=== PATIENT | female | born 1985 | race Caucasian/White ===

== ENCOUNTER 2017-05-05 11:16 | Emergency (ER) | payer SELFPAY ==
[~2017-05-05] VITALS: Ht 157.5 cm; Wt 45.0 kg
[~2017-05-05 11:16] MED LIST: MECL25 PO
[2017-05-05 11:31] VITALS: BP 133/82; PULSE 69; RESP 16; TEMP 98.8; O2SAT 98
--- NOTE | 2017-05-05 12:24 | PD ---
HPI Chief Complaint: Laceration/Skin Injury Time Seen by Provider: 12:02 Travel History International Travel<30 days: No Contact w/Intl Traveler<30days: No Traveled to known affect area: No History of Present Illness HPI 31-year-old female presents emergency department for evaluation of laceration to her scalp caused by surfboard fin. Patient reports she was in the ocean [place] when she fell from her surfboard and the fin of the board caused a laceration to the top of her head. She denies loss of consciousness. She denies headache, neck pain. She has small laceration to the top of scalp. Symptom severity is mild. No aggravating or alleviating factors. Tetanus status unknown PFSH Past Medical History Depression: Yes Diminished Hearing: No Gastrointestinal Disorders: No Genitourinary: Yes Hepatitis: Yes (Hep B) Hypertension: Yes Implanted Vascular Access Dvce: No Kidney Stones: Yes Musculoskeletal: Yes (NECK AND BACK CHRONIC PAIN) Neurologic: Yes Psychiatric: Yes (ADHD) Immunizations Current: Yes Migraines: Yes Tetanus Vaccination: > 5 Years Influenza Vaccination: No ?: Not LMP: 04/15/17 : 2 Past Surgical History Surgical History: No Previous Surgery Other Surgery: No Social History Alcohol Use: Yes (socially) Tobacco Use: No (quit 3 yrs ago) 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) Allergies-Medications (Allergen,Severity, Reaction): Coded Allergies: acetaminophen (Unverified Allergy, Severe, HIVES/SWELLING, 04/26/17) dichloralphenazone (Unverified Allergy, Severe, HIVES/SWELLING, 04/26/17) isometheptene (Unverified Allergy, Severe, HIVES/SWELLING, 04/26/17) Opioids - Morphine Analogues (Unverified Allergy, Intermediate, 04/26/17) Opioids-Meperidine and Related (Unverified Allergy, Intermediate, 04/26/17) Opioids-Methadone and Related (Unverified Allergy, Intermediate, 04/26/17) Reported Meds & Prescriptions Reported Meds & Active Scripts Active Antivert (Meclizine HCl) 25 Mg Tab 25 Mg PO TID PRN Review of Systems Except as stated in HPI: all other systems reviewed are Neg Physical Exam Narrative GENERAL: Well-nourished, well-developed patient. SKIN: Focused skin assessment warm/dry. 1.5 cm laceration to the top of the scalp. Bleeding is well-controlled. No palpable skull fracture. HEAD: Normocephalic. EYES: No scleral icterus. No injection or drainage. NECK: Supple, trachea midline. No JVD or lymphadenopathy. No cervical midline tenderness CARDIOVASCULAR: Regular rate and rhythm without murmurs, gallops, or rubs. RESPIRATORY: Breath sounds equal bilaterally. No accessory muscle use. GASTROINTESTINAL: Abdomen soft, non-tender, nondistended. MUSCULOSKELETAL: No cyanosis, or edema. BACK: Nontender without obvious deformity. No CVA tenderness. Data Data Last Documented VS Vital Signs Date Time Temp Pulse Resp B/P (MAP) Pulse Ox O2 Delivery O2 Flow Rate FiO2 05/05/17 11:31 98.8 69 16 133/82 (99) 98 Orders Orders Tetanus/Diphtheria Tox Adult (Tetanus/Di (05/05/17 12:30) MDM Medical Decision Making Medical Screen Exam Complete: Yes Emergency Medical Condition: Yes Differential Diagnosis Scalp laceration, scalp hematoma, skull fracture Narrative Course 31-year-old female presents emergency department for evaluation of small laceration to her scalp caused by surfboard 10. On exam patient has a 1.5 cm laceration with minimal bleeding. No palpable skull fracture. No hematoma. Patient has no cervical midline tenderness and no other injuries. Patient has a normal neurologic exam. 2 ivanna placed to repair laceration. Patient tolerated procedure well. Return precautions discussed. Patient verbalizes understanding and agrees to plan Procedures Procedure Narrative LACERATION LOCATION: Scalp LENGTH: And 1.5 cm NUMBER OF STITCHES/IVANNA: 2 ivanna REPAIR: The area of the laceration was prepped with Betadine and sterilely draped. The wound was copiously irrigated and explored without evidence of foreign body, tendon injury or neurovascular injury. The wound was closed using ivanna. This was a single layer repair. A sterile dressing was applied. The patient was advised to keep the dressing clean and dry. Patient tolerated the procedure well. Diagnosis Primary Impression: Scalp laceration Qualified Codes: S01.01XA - Laceration without foreign body of scalp, initial encounter Referrals: [facility] Additional Instructions: Take [id number] Motrin 600-800 milligrams every 6-8 hours as needed for pain. You may wash her hair with soap and water daily. Percival need to be removed in 10 days. Return to emergency department if he developed new or worsening symptoms Disposition: 01 DISCHARGE HOME Condition: Stable Tiff Petersen May 05, 2017 12:24
[2017-05-05] MEDS ORDERED: TETANUS/DIPHTHERIA TOXOID ADULT 0.5 ML VIAL IM ONE (12:30)
== END 2017-05-05 12:41 | disposition home or self-care (01) ==
LOC: PHEFT 11:16
DX: S01.01XA Laceration without foreign body of scalp, initial encounter (principal); W22.8XXA Striking against or struck by other objects, initial encounter; Y93.18 Activity, surfing, windsurfing and boogie boarding; Y92.832 Beach as the place of occurrence of the external cause; Z87.891 Personal history of nicotine dependence; Z23 Encounter for immunization; I10 Essential (primary) hypertension; G89.29 Other chronic pain; B19.10 Unspecified viral hepatitis B without hepatic coma
CPT/HCPCS: 12001; 90471; 90714

== ENCOUNTER 2017-05-18 14:14 | Emergency (ER) | payer SELFPAY ==
[~2017-05-18] VITALS: Ht 157.5 cm; Wt 44.9 kg
[2017-05-18 14:27] VITALS: BP 122/58; PULSE 60; RESP 16; TEMP 98.1; O2SAT 100
--- NOTE | 2017-05-18 14:35 | PD ---
HPI Chief Complaint: staple removal Time Seen by Provider: 14:34 Travel History International Travel<30 days: No Contact w/Intl Traveler<30days: No History of Present Illness HPI 31-year-old female presents to the ED for evaluation of scalp wound and staple removal. Patient states that she was cut by her surfboard fin on 05/05. She was seen in this ED and ivanna were applied. The patient denies warmth, redness, bleeding or drainage from the wound. She denies fevers or chills. She 's been following instructions given at discharge. 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) Allergies-Medications (Allergen,Severity, Reaction): Coded Allergies: acetaminophen (Unverified Allergy, Severe, HIVES/SWELLING, 05/18/17) dichloralphenazone (Unverified Allergy, Severe, HIVES/SWELLING, 05/18/17) isometheptene (Unverified Allergy, Severe, HIVES/SWELLING, 05/18/17) Opioids - Morphine Analogues (Unverified Allergy, Intermediate, 05/18/17) Opioids-Meperidine and Related (Unverified Allergy, Intermediate, 05/18/17) Opioids-Methadone and Related (Unverified Allergy, Intermediate, 05/18/17) Reported Meds & Prescriptions Reported Meds & Active Scripts Active No Active Prescriptions or Reported Medications Review of Systems Except as stated in HPI: all other systems reviewed are Neg Physical Exam Narrative GENERAL: Well-nourished, well-developed pleasant white female in no acute distress. SKIN: Focused skin assessment warm/dry. 2 ivanna in the superior aspect of the scalp with no signs of infection. HEAD: Normocephalic. EYES: No scleral icterus. No injection or drainage. NECK: Supple, trachea midline. No JVD or lymphadenopathy. CARDIOVASCULAR: Regular rate and rhythm without murmurs, gallops, or rubs. RESPIRATORY: Breath sounds equal bilaterally. No accessory muscle use. GASTROINTESTINAL: Abdomen soft, non-tender, nondistended. MUSCULOSKELETAL: No cyanosis, or edema. BACK: Nontender without obvious deformity. No CVA tenderness. Data Data Last Documented VS Vital Signs Date Time Temp Pulse Resp B/P (MAP) Pulse Ox O2 Delivery O2 Flow Rate FiO2 05/18/17 14:27 98.1 60 16 122/58 (79) 100 MDM Medical Decision Making Medical Screen Exam Complete: Yes Emergency Medical Condition: Yes Differential Diagnosis Wound check versus staple removal versus wound dehiscence versus wound infection versus other Narrative Course 31-year-old female presents to the ED for evaluation of scalp wound and staple removal. Patient states that she was cut by her surfboard fin on 05/05. She was seen in this ED and ivanna were applied. The patient denies warmth, redness, bleeding or drainage from the wound. She denies fevers or chills. Vitals reviewed. Physical exam reveals [address] in the top of the scalp without signs of infection. They were removed without incident. I informed the patient that no special wound care is needed at this time. Patient's encouraged follow-up with their primary care provider. She is stable and discharged home. Diagnosis Primary Impression: Encounter for removal of ivanna Referrals: Primary Care Physician Additional Instructions: Thank you for choosing [facility] for emergency care. Follow-up with her primary care provider. Return to the ED for any urgent or emergent medical condition. Scripts No Active Prescriptions or Reported Meds Disposition: 01 DISCHARGE HOME Condition: Stable Nathalia Cotton May 18, 2017 14:35
== END 2017-05-18 14:53 | disposition home or self-care (01) ==
LOC: PHEFT 14:14
DX: S01.01XD Laceration without foreign body of scalp, subsequent encounter (principal); W26.8XXD Contact with other sharp object(s), not elsewhere classified, subsequent encounter; Y93.18 Activity, surfing, windsurfing and boogie boarding; Z48.02 Encounter for removal of sutures
CPT/HCPCS: 99281